=== PATIENT | female | born 1970 | race Caucasian/White ===

== ENCOUNTER → 2018-04-23 13:37 | Outpatient (CLI) | payer OTHER, SELFPAY ==
[2018-04-23 15:43] LABS: Appearance Urine UA CLOUDY; Bilirubin Urine UA NEGATIVE (NEGATIVE); Color Urine UA YELLOW; Glucose Urine UA NEGATIVE (Normal); Ketones Urine UA NEGATIVE (NEGATIVE); Leukocyte Esterase Urine UA NEGATIVE (NEGATIVE); Nitrite Urine UA Negative (Negative); Occult Blood Urine UA 3+ (Negative); Protein Urine UA NEGATIVE (Negative); Urobilinogen Urine UA 0.2 E.U./dL (0.2); pH Urine UA 7.5 (4.5-8.0)
[2018-04-23 16:24] LABS: Amorphous Sediment Urine 3+; Bacteria Urine Few (2-10); Culture Indicated Urine Cult Not Indicated; Mucus Urine 2+ (Negative); RBC Urine 10-30/HPF (0-5/HPF); Squamous Epithelial Cell Urine 0-1 /HPF; WBC Urine 0-1/HPF (0-5/HPF)
== END ==
PROVIDERS: Family Provider Physician Assistant; PCP Physician Assistant; Visit Provider Physician Assistant
DX: M54.5 Low back pain (principal); R31.9 Hematuria, unspecified
CPT/HCPCS: 81001

== ENCOUNTER → 2018-04-23 13:51 | Outpatient (CLI) | payer OTHER, SELFPAY ==
--- NOTE | 2018-04-23 13:55 | DI.RAD.S_ITS ---
PROCEDURE: XR HIP W PEL IF DONE RT 2V INDICATIONS: Recent tooth abcess w/subsequent Right hip pain TECHNIQUE: AP pelvis with AP and lateral view(s) of the right hip(s). COMPARISON: None. FINDINGS: Bones: No fractures or dislocations. Pelvic ring appears intact. No suspicious bony lesions. There is mild, symmetrical narrowing of the hip joint spaces and early subcortical cystic changes in the right acetabulum. Soft tissues: The visualized bowel gas pattern is normal. No suspicious soft tissue calcifications. IMPRESSION: No fracture deformity. No evidence of infectious process. Mild arthritis of the hips. Dictated by: Yefri Brush M.D. on 04/23/2018 at 15:08 Approved by: Yefri Brush M.D. on 04/23/2018 at 15:11
--- NOTE | 2018-04-23 13:55 | DI.RAD.S_ITS ---
PROCEDURE: XR ABDOMEN MIN 2V INDICATIONS: Recent tooth abcess w/subsequent Right hip pain TECHNIQUE: 2 views of the abdomen were acquired. COMPARISON: None. FINDINGS: Surgical changes and devices: None. Bowel: No pneumoperitoneum. The bowel gas pattern shows considerable fecal loading through the colon, possible constipation Soft tissues: No masses; visualized solid organ contours appear normal in size. No suspicious abdominal calcifications. Bones: No suspicious bony abnormalities. Mild lumbar levoconvex curvature. IMPRESSION: Possible constipation Dictated by: Yefri Brush M.D. on 04/23/2018 at 15:11 Approved by: Yefri Brush M.D. on 04/23/2018 at 15:12
[2018-04-23 14:31] LABS: Add Manual Diff / Slide Review NO; Basophils Percent Auto 0.7 % (0-2); Eosinophils Percent Auto 2.8 % (2-4); Hematocrit 38.9 % (36-46); Hemoglobin 13.2 g/dL (12.0-16.0); Lymphocytes Percent Auto 23.5 % (25-40); Mean Corpuscular HGB Conc 33.9 % (30-36); Mean Corpuscular Volume 91.4 fL (80-100); Monocytes Percent Auto 9.7 % (3-14); Neutrophils Absolute Auto 3400 /uL (3000-5900); Neutrophils Percent Auto 63.3 % (50-75); Platelet Count 180 X10^3/uL (150-400); Red Blood Cell Count 4.25 X10^6/uL (4.0-5.2); Red Cell Distribution Width 12.4 % (11.6-14.8); White Blood Cell Count 5.4 X10^3/uL (4.5-11.0)
[2018-04-23 15:19] LABS: Alanine Aminotransferase 38 IU/L (9-52); Albumin 4.1 g/dL (3.5-5.0); Albumin Globulin Ratio 1.6 (1.0-2.8); Alkaline Phosphatase 69 U/L (38-126); Aspartate Aminotransferase 33 IU/L (14-36); Bilirubin Total 0.6 mg/dL (0.2-1.3); Blood Urea Nitrogen 21 mg/dL (7-17); Calcium 9.3 mg/dL (8.4-10.2); Carbon Dioxide 29 mmol/L (22-32); Chloride 104 mmol/L (98-107); Estimated Glomerular Filt Rate > 60.0 mL/min (>60); Globulin 2.5 g/dL (1.7-4.1); Glucose 86 mg/dL (70-100); HEMOLYSIS < 15 (0-50); Iron 91 ug/dL (37-170); Potassium 3.6 mmol/L (3.4-5.1); Sodium 141 mmol/L (137-145); Total Protein 6.6 g/dL (6.3-8.2)
[2018-04-23 15:30] LABS: Percent Iron Saturation 27 % (15-50); Total Iron Binding Capacity 334 ug/dL (265-497); Transferrin 262 mg/dL (206-381)
[2018-04-23 15:36] LABS: Free T4, Direct Thyroxine 1.24 ng/dL (0.78-2.19)
[2018-04-23 15:50] LABS: Thyroid Stimulating Hormone 3.14 uIU/mL (0.47-4.68)
[2018-04-23 16:08] LABS: Vitamin B12 > 1000 pg/mL (239-931)
[2018-04-23 17:37] LABS: Vitamin D 25 Hydroxy (D3) 82.9 ng/mL (30.0-100.0)
== END ==
PROVIDERS: PCP Physician Assistant; Visit Provider Physician Assistant
DX: R31.9 Hematuria, unspecified (principal); M54.5 Low back pain; R06.00 Dyspnea, unspecified; R53.83 Other fatigue; Z82.62 Family history of osteoporosis; K04.7 Periapical abscess without sinus; M25.551 Pain in right hip; R06.09 Other forms of dyspnea
CPT/HCPCS: 36415; 73502; 74019; 80053; 82306; 82607; 82728; 83540; 83550; 84439; 84443; 85025

== ENCOUNTER → 2018-05-21 10:13 | Outpatient (CLI) | payer OTHER, SELFPAY ==
--- NOTE | 2018-05-21 10:15 | DI.US.S_ITS ---
PROCEDURE: US ABDOMEN COMPLETE INDICATIONS: RIGHT FLANK PAIN; HEMATURIA TECHNIQUE: Real-time scanning was performed of the abdominal and retroperitoneal organs, with image documentation. COMPARISON: None. FINDINGS: Liver: Liver is normal in size and homogeneous in echotexture. Gallbladder: Gallbladder is clear with normal wall thickness. Biliary ducts: Intrahepatic bile ducts are non-dilated. Extrahepatic bile duct caliber measures 3.2 mm. Normal is 6-7 mm or less in diameter, or 10 mm or less post-cholecystectomy. Pancreas: Visualized portions of the pancreas are sonographically normal. Spleen: Spleen is normal in size and homogeneous in echotexture. Kidneys: Kidneys are normal in size and echotexture. Right kidney measures 11.6 cm long; left kidney measures 11.6 cm long. No hydronephrosis or nephrolithiasis. No solid masses. Aorta: Visualized aorta is normal in caliber at less than 3 cm. Iliacs: Proximal common iliac arteries are normal in caliber at less than 2.5 cm. IVC: Intrahepatic inferior vena cava is patent. Miscellaneous: No free abdominal fluid. IMPRESSION: Normal abdomen ultrasound. Source of right flank pain not seen. If clinically indicated, suggest CT KUB. Dictated by: Yefri Brush M.D. on 05/21/2018 at 11:24 Approved by: Yefri Brush M.D. on 05/21/2018 at 11:30
--- NOTE | 2018-05-21 10:15 | DI.US.S_ITS ---
PROCEDURE: US PELVIC COMPLETE INDICATIONS: HEMATURIA; LOW BACK PAIN TECHNIQUE: Real-time scanning was performed of the pelvic organs, with image documentation. Additional endovaginal scanning was necessary due to incomplete visualization of the adnexal and endometrial structures by transabdominal scanning. COMPARISON: [facility], , PELVIC COMPLETE, 02/02/2009, 13:17. FINDINGS: Transabdominal scanning: Limited scanning through the kidneys shows no hydronephrosis. No pathologic free abdominal or pelvic fluid. Appendix is not visualized. Endovaginal scanning: Uterus: Uterus is normal in size at 3.2 x 3.4 x 5.9 cm. The endometrium measures 4.9 mm in combined thickness. Ovaries: Right ovary is nonvisualized. Left ovary measures 8 x 10 x 26 mm. No evidence of ovarian mass. Small follicular cysts. IMPRESSION: 1. Normal-appearing uterus and left ovary. 2. Right ovary is nonvisualized. No adnexal abnormality or source of right flank pain seen. Dictated by: Yefri Brush M.D. on 05/21/2018 at 11:33 Approved by: Yefri Brush M.D. on 05/21/2018 at 11:36
== END ==
PROVIDERS: Family Provider Physician Assistant; PCP Physician Assistant; Visit Provider Physician Assistant
DX: M54.5 Low back pain (principal); R31.9 Hematuria, unspecified; N91.2 Amenorrhea, unspecified; R10.2 Pelvic and perineal pain; N83.01 Follicular cyst of right ovary; R10.9 Unspecified abdominal pain
CPT/HCPCS: 76700; 76830; 76856

== ENCOUNTER → 2018-07-27 11:20 | Outpatient (CLI) | payer OTHER, SELFPAY ==
--- NOTE | 2018-07-27 | DI.CT.S_ITS ---
PROCEDURE: CT ABDOMEN PELVIS WO/W CON INDICATIONS: FAMILY HISTORY OF KIDNEY STONES TECHNIQUE: Optional 5 mm thick noncontrast images acquired from the diaphragm to the symphysis pubis. After the administration of intravenous contrast, 5 mm thick images acquired from the diaphragm to the symphysis pubis after a 10-minute delay. 2 mm thick coronal and sagittal reformats were then performed of the kidneys and ureters. For radiation dose reduction, the following was used: automated exposure control, adjustment of mA and/or kV according to patient size. COMPARISON: [facility], US, US PELVIC COMPLETE, 05/21/2018, 10:50. [facility], US, US ABDOMEN COMPLETE, 05/21/2018, 10:29. [facility], CR, XR ABDOMEN MIN 2V, 04/23/2018, 13:44. FINDINGS: Image quality: Excellent. Lung bases: Lung bases are clear. Heart size is normal. Urinary system: Both kidneys are normal in size, without hydronephrosis bilaterally or left-sided nephrolithiasis on pre-contrast images. There is a 2 x 2 0.5 mm calculus that appears nonobstructive within the lower third collecting system of the right kidney. No perinephric fat stranding. There is normal bilateral renal enhancement. Renal calyces appear normal in morphology when filled with contrast. Opacified portions of both ureters demonstrate normal caliber. Bladder wall thickness is normal. No calcified bladder stones. Other solid organs: Liver is normal in size and enhancement. Gallbladder appears normal. Biliary system is non dilated. Pancreas enhances normally. Spleen is normal in size and enhancement. No adrenal nodules. Peritoneum and bowel: Bowel loops demonstrate normal wall thickness and caliber. No free fluid or air. Nodes and vessels: No retroperitoneal or mesenteric adenopathy by size criteria. Aorta and inferior vena cava are normal in size. Abdominal wall: No ventral hernias. Pelvis: No pathologic free pelvic fluid. No inguinal hernias or adenopathy. Bones: No suspicious bony lesions. No vertebral body compression fractures. IMPRESSION: Nonobstructive tube 0.0 x 2.5 mm calculus is noted within the lower third collecting system of the right kidney. This represents the only identified source of right-sided flank pain. Dictated by: Tereso Ryan M.D. on 07/27/2018 at 13:28 Approved by: Tereso Ryan M.D. on 07/27/2018 at 13:52
== END ==
PROVIDERS: Family Provider Physician Assistant; PCP Physician Assistant; Visit Provider Urology
DX: N20.0 Calculus of kidney (principal); R10.9 Unspecified abdominal pain; Z84.1 Family history of disorders of kidney and ureter
CPT/HCPCS: 74178; Q9967

== ENCOUNTER 2019-08-20 13:55 | Emergency (ER) | payer OTHER, SELFPAY ==
[2019-08-20 14:13] VITALS: BP 148/83; PULSE 73; RESP 16; TEMP 36.7; O2SAT 98; BMI 18.6
--- NOTE | 2019-08-20 14:22 | DI.US.S_ITS ---
PROCEDURE: US PERIPH VENOUS LOW EXTREM RT INDICATIONS: CALF PAIN, POST FLIGHT TECHNIQUE: Real-time imaging, as well as color and pulse Doppler interrogation, were performed of the lower extremity deep veins from the inguinal ligament to the popliteal fossa. COMPARISON: None. FINDINGS: The common femoral, femoral and popliteal veins are normally compressible, and free of intraluminal thrombus. Color and pulse Doppler demonstrate normal phasic intraluminal flow. There is normal augmentation response to distal compression maneuver. IMPRESSION: No evidence of deep vein thrombosis of the right lower extremity. Dictated by: Massimo Dial M.D. on 08/20/2019 at 13:58 Approved by: Massimo Dial M.D. on 08/20/2019 at 13:58
--- NOTE | 2019-08-20 14:25 | ED_ITS ---
HPI - Extremity Problem <TALIA Marie - Last Filed: 08/20/19 15:27> General Chief complaint: Extremity Problem,Nontraumatic Stated complaint: right lower leg/? blood clot x1day Time Seen by Provider: 08/20/19 14:15 Source: patient Mode of arrival: Ambulatory Limitations: no limitations History of Present Illness HPI Narrative: The patient is a 48-year-old female nonsmoker with history of migraine who presents with a chief complaint of right lower leg pain. She states that she recently traveled to [place] including flights, and this morning she started having pain in her right lower leg. She has not taken anything for it. She is concerned about blood clot given her recent travel. She states she flew 1st class and try to move around a lot, but she is still concerned. Denies any chest pain shortness of breath or personal history of blood clots. However she states that she does have a family history of blood clots. Related Data Home Medications Medication Instructions Recorded Confirmed levothyroxine [Synthroid] 50 mcg PO DAILY 08/20/19 08/20/19 progesterone micronized 100 mg PO QAM 08/20/19 08/20/19 Previous Rx's Medication Instructions Recorded Adacel(Tdap Adolesn/Adult)(PF) 0.5 ml IM X1 #1 dose 04/10/17 albuterol sulfate 90 mcg/actuation 2 puff INHALATION Q4HP PRN #1 each 04/24/18 aerosol inhaler estradiol 0.05 mg/24 hr semiweekly 1 patch TRANSDERMAL 2XW #8 each 11/23/18 transdermal patch alprazolam 0.25 mg tablet 0.25 mg PO BID #20 tab 08/10/19 Allergies Allergy/AdvReac Type Severity Reaction Status Date / Time corn [CORN] Allergy Severe ANAPHYLAXIS Verified 08/20/19 14:17 BEE VENOM (YELLOW JACKET) Allergy Intermediate SWELLING Uncoded 08/20/19 14:17 Review of Systems <TALIA Marie - Last Filed: 08/20/19 15:27> Review of Systems Narrative: GENERAL: Denies chills, fatigue, malaise, fever, sweats. HEENT: Denies sinus pain, ear pain, sore throat, difficulty swallowing, dizziness. RESPIRATORY: Denies dyspnea, cough, wheezing, hemoptysis, sputum. CARDIOVASCULAR: Denies chest pain, palpitations, orthopnea, edema, GASTROINTESTINAL: Denies nausea, vomiting, abdominal pain, diarrhea, constipation, melena. : Denies dysuria, frequency, incontinence, hematuria, urinary retention. MUSCULOSKELETAL: See HPI SKIN: Denies rash, skin lesions, or other NEUROLOGIC: Denies weakness, headache, numbness, change in speech, confusion, seizures, incoordination. PSYCHIATRIC: No concerning psychosocial issues. 12 point review of systems is negative except for those stated above Patient History <TALIA Marie - Last Filed: 08/20/19 15:27> Surgical History Status post laparoscopy Family History Brother Age: 52 Hypertension High cholesterol Sleep apnea Father Age: 77 Heart disease Hypertension Aortic aneurysm High cholesterol Sleep apnea Mother Age: 74 Hypertension Detached retina High cholesterol Sleep apnea Sister Age: 46 Lupus Breast cancer Brain aneurysm Social History Smoking Status: Never smoker second hand exposure: No alcohol intake: current (On occasion) substance use type: does not use alcohol intake frequency: holidays/special occasions only Substance Use Type: does not use Exam <TALIA Marie - Last Filed: 08/20/19 15:27> Narrative Exam Narrative: GENERAL: This is a well-nourished, well-developed patient, in no acute distress HEAD: Atraumatic. Normocephalic. No temporal or scalp tenderness. EYES: Pupils equal round and reactive. Extraocular motions intact. No scleral icterus. No injection or drainage. ENT: Nose without bleeding, purulent drainage or septal hematoma. Throat without erythema, tonsillar hypertrophy or exudate. Uvula midline. Airway patent. NECK: Trachea midline. No JVD or lymphadenopathy. Supple, nontender, no meningeal signs. CARDIOVASCULAR: Regular rate and rhythm without murmurs, gallops, or rubs. RESPIRATORY: Clear to auscultation. Breath sounds equal bilaterally. No wheezes, rales, or rhonchi. No cough. No increased respiratory effort. No accessory muscle use. GASTROINTESTINAL: Abdomen soft, non-tender, nondistended. No hepato- splenomegaly, or palpable masses. No guarding. EXTREMITIES: Diffuse tenderness to palpation right lower leg. Positive pedal pulses. BACK: Nontender without deformity or crepitance. No flank tenderness. NEURO: AOx3. SKIN: No rash or erythema or ecchymosis on visible skin. Initial Vital Signs Initial Vital Signs: Vital Signs Temperature 98.0 F 08/20/19 14:13 Pulse Rate 73 08/20/19 14:13 Respiratory Rate 16 08/20/19 14:13 Blood Pressure 148/83 H 08/20/19 14:13 Pulse Oximetry 98 08/20/19 14:13 <Aminta Lyon DO - Last Filed: 08/21/19 07:31> Initial Vital Signs Initial Vital Signs: Vital Signs Temperature 98.0 F 08/20/19 14:13 Pulse Rate 73 08/20/19 14:13 Respiratory Rate 16 08/20/19 14:13 Blood Pressure 148/83 H 08/20/19 14:13 Pulse Oximetry 98 08/20/19 14:13 Course <TALIA Marie - Last Filed: 08/20/19 15:27> Orders Ordered: ED Orders 08/20/19 14:22 US periph venous low extrem rt Stat Vital Signs Vital signs: Vital Signs - 8 hr 08/20/19 14:13 Temperature 98.0 F Pulse Rate 73 Respiratory Rate 16 Blood Pressure 148/83 H Pulse Oximetry 98 <Aminta Lyon DO - Last Filed: 08/21/19 07:31> Orders Ordered: ED Orders 08/20/19 14:22 US periph venous low extrem rt Stat Vital Signs Vital signs: Vital Signs - 8 hr 08/20/19 14:13 Temperature 98.0 F Pulse Rate 73 Respiratory Rate 16 Blood Pressure 148/83 H Pulse Oximetry 98 MDM - Extremity (Nontraumatic) <TALIA Marie - Last Filed: 08/20/19 15:27> Imaging Data Venous US: Radiologist's impression: [address] [address] Ultrasound Report Signed Patient: Kiera Bradley JMR#: [id number] : 1970Acct:[id number] Age/Sex: 48 / FDate of Service: 08/20/19 Loc: ED Accession Number: [id number] Procedure: periph venous low extrem rt Ordering Provider: Shivani Beasley PROCEDURE: US PERIPH VENOUS LOW EXTREM RT INDICATIONS: CALF PAIN, POST FLIGHT TECHNIQUE: Real-time imaging, as well as color and pulse Doppler interrogation, were performed of the lower extremity deep veins from the inguinal ligament to the popliteal fossa. COMPARISON: None. FINDINGS: The common femoral, femoral and popliteal veins are normally compressible, and free of intraluminal thrombus. Color and pulse Doppler demonstrate normal phasic intraluminal flow. There is normal augmentation response to distal compression maneuver. IMPRESSION: No evidence of deep vein thrombosis of the right lower extremity. Dictated by: Massimo Dial M.D. on 08/20/2019 at 13:58 Approved by: Massimo Dial M.D. on 08/20/2019 at 13:58 [facility] Narrative Medical decision making narrative: The patient is a 48-year-old female who presents with a chief complaint of acute right lower leg pain. She has recently been flying to and from [place]. Thus given her risk factors, ultrasound was taken help rule out deep vein thrombosis, likely this came back negative for any acute findings. She is neurovascularly intact. She complains of no chest pain or shortness of breath. She is hemodynamically stable throughout her stay in the emergency department. I discussed conservative measures for her calf pain at this point time including [id number] medications, rest ice compression elevation. I encouraged follow-up with her PCP in the next few days. Discussed come back to emergency department for any acute concerns such as chest pain, shortness of breath, concern of blood clots. Patient has no questions or concerns upon discharge and states understanding of return precautions as well as follow-up care. Discharge Plan Departure Patient Disposition: Home Clinical Impression: Leg pain, right Discharge Date/Time: 08/20/19 15:13 Instructions: How To Perform RICE (Rest, Ice, Compress, Elevate), DI for Leg Pain Activity Restrictions/Additional Instructions: Your ultrasound came back negative for any blood clots today. Please come back to the emergency department for any acute concerns such as shortness of breath, concern of heart attack or stroke concern of another blood clot etc please Please follow up with primary care provider in a few days. Please to conservative measures such as rest ice compression elevation as well as [id number] pain medications as needed and able Prescriptions: No Action albuterol sulfate [Ventolin HFA] 90 mcg/actuation HFA aerosol inhaler 2 puff INHALATION Q4HP PRN (Reason: asthma) Qty: 1 RF: 4 Adacel(Tdap Adolesn/Adult)(PF) 0.5 ML suspension 0.5 ml IM X1 Qty: 1 RF: 0 alprazolam 0.25 mg tablet 0.25 mg PO BID Qty: 20 RF: 0 estradiol [Vivelle-Dot] 0.05 mg/24 hr patch semiweekly 1 patch Transdermal 2XW Qty: 8 RF: 12 levothyroxine [Synthroid] 50 mcg Tablet 50 mcg PO DAILY RF: 0 progesterone micronized 100 mg Capsule 100 mg PO QAM RF: 0 Referrals: Darcy Robb PA-C [Primary Care Provider] -
== END 2019-08-20 15:13 | disposition home or self-care (01) ==
PROVIDERS: Emergency Provider Nurse Practitioner Family; Family Provider Physician Assistant; PCP Physician Assistant
DX: M79.661 Pain in right lower leg (principal)
CPT/HCPCS: 93971; 99282; 99283

== ENCOUNTER → 2019-08-30 12:04 | Outpatient (CLI) | payer OTHER, SELFPAY ==
--- NOTE | 2019-08-30 12:07 | DI.RAD.S_ITS ---
PROCEDURE: XR LUMBAR SPINE MIN 4V INDICATIONS: Low back pain with possible sciatica on R TECHNIQUE: 4 views of the lumbar spine were acquired. COMPARISON: [facility], CT, CT ABDOMEN PELVIS WO/W CON, 07/27/2018, 11:30. FINDINGS: Bones: 5 nonrib-bearing vertebrae are present. There is normal bony alignment. No vertebral body compression fractures. No suspicious bony lesions. Soft tissues: Overlying bowel gas pattern is normal. No suspicious soft tissue calcifications. Oblique images: No pars defects. IMPRESSION: No source of low back pain and right-sided sciatica symptoms is found. Followup MR scanning may become necessary. Dictated by: Tereso Ryan M.D. on 08/30/2019 at 13:01 Approved by: Tereso Ryan M.D. on 08/30/2019 at 13:02
--- NOTE | 2019-08-30 12:07 | DI.RAD.S_ITS ---
PROCEDURE: XR SACROILIAC JOINT MIN 3V INDICATIONS: Low back pain with possible sciatica on R TECHNIQUE: 3 views of the sacroiliac joints were acquired. COMPARISON: None. FINDINGS: Bones: No bony erosions or ankylosis. No suspicious bony lesions. No fractures. Soft tissues: Overlying bowel gas pattern is normal. No suspicious soft tissue densities. IMPRESSION: Normal evaluation for age, source of asymmetric right-sided sciatica is not found. Dictated by: Tereso Ryan M.D. on 08/30/2019 at 13:00 Approved by: Tereso Ryan M.D. on 08/30/2019 at 13:00
== END ==
PROVIDERS: PCP Physician Assistant; Visit Provider Physician Assistant
DX: M54.5 Low back pain (principal); M79.604 Pain in right leg; Z87.828 Personal history of other (healed) physical injury and trauma
CPT/HCPCS: 72110; 72202

== ENCOUNTER → 2020-02-24 12:32 | Outpatient (CLI) | payer OTHER, SELFPAY | PROVIDERS: PCP Physician Assistant; Visit Provider Family Medicine | DX: R30.0 Dysuria (principal) | CPT/HCPCS: 87086 ==

== ENCOUNTER → 2020-06-28 13:29 | Outpatient (CLI) | payer OTHER, SELFPAY | PROVIDERS: PCP Physician Assistant; Visit Provider Physician Assistant | DX: N30.01 Acute cystitis with hematuria (principal) | CPT/HCPCS: 87086 ==

== ENCOUNTER → 2020-07-18 20:13 | Outpatient (ROUT) | payer OTHER, SELFPAY ==
[2020-07-18 20:18] LABS: Bacteria Urine None Seen
[2020-07-18 20:31] LABS: Appearance Urine UA CLEAR; Bilirubin Urine UA NEGATIVE (NEGATIVE); Color Urine UA YELLOW; Glucose Urine UA NEGATIVE (Negative); Ketones Urine UA 1+ (NEGATIVE); Leukocyte Esterase Urine UA NEGATIVE (NEGATIVE); Nitrite Urine UA NEGATIVE (Negative); Occult Blood Urine UA 1+ (Negative); Protein Urine UA NEGATIVE (Negative); Specific Gravity Urine UA >=1.030 (1.000-1.035); Urobilinogen Urine UA 0.2 E.U./dL (0.2)
[2020-07-18 20:54] LABS: Add Manual Diff / Slide Review NO; Basophils Absolute Auto 0 /uL (0-100); Basophils Percent Auto 0.6 % (0-2); Eosinophils Absolute Auto 100 /uL (0-450); Eosinophils Percent Auto 2.2 % (2-4); Hematocrit 41.4 % (36-46); Hemoglobin 13.9 g/dL (12.0-16.0); Lymphocytes Absolute Auto 1200 /uL (1100-4500); Lymphocytes Percent Auto 25.7 % (25-40); Mean Corpuscular HGB Conc 33.7 % (30-36); Mean Corpuscular Hemoglobin 30.8 PG (26-34); Mean Corpuscular Volume 91.5 fL (80-100); Monocytes Absolute Auto 500 /uL (0-900); Monocytes Percent Auto 10.5 % (3-14); Neutrophils Absolute Auto 2800 /uL (1500-7000); Platelet Count 133 X10^3/uL (150-400); Red Blood Cell Count 4.52 X10^6/uL (4.0-5.2); Red Cell Distribution Width 12.5 % (11.6-14.8); White Blood Cell Count 4.5 X10^3/uL (4.5-11.0)
[2020-07-18 20:55] LABS: Calcium Oxalate Crystals Urine Few; Culture Indicated Urine Cult Not Indicated; RBC Urine 0-1/HPF (0-5/HPF); Squamous Epithelial Cell Urine 1-5 /HPF (0-5/HPF); Transitional Epi Cells Urine 0-1/HPF (0-5/HPF); WBC Urine 0-1/HPF (0-5/HPF)
[2020-07-18 21:06] LABS: Vitamin D 25 Hydroxy (D3) 86.6 ng/mL (30.0-100.0)
[2020-07-18 21:23] LABS: Estradiol, Total 47.3 pg/mL
[2020-07-18 21:25] LABS: C-Reactive Protein Quant < 0.5 mg/dL (<1.0)
[2020-07-18 21:32] LABS: Free T3, Triiodothyronine Free 2.68 pg/mL (2.77-5.27); Free T4, Direct Thyroxine 1.11 ng/dL (0.78-2.19)
[2020-07-18 21:46] LABS: Thyroid Stimulating Hormone 1.17 uIU/mL (0.47-4.68)
== END ==
PROVIDERS: PCP Physician Assistant; Visit Provider Physician Assistant
DX: E03.9 Hypothyroidism, unspecified (principal); E78.00 Pure hypercholesterolemia, unspecified; N95.1 Menopausal and female climacteric states; N39.0 Urinary tract infection, site not specified; E55.9 Vitamin D deficiency, unspecified; R53.83 Other fatigue
CPT/HCPCS: 81001; 82306; 82670; 83001; 83002; 84439; 84443; 84481; 85025; 86140

== ENCOUNTER → 2020-08-10 14:12 | Outpatient (CLI) | payer OTHER, SELFPAY ==
[2020-08-10 15:36] LABS: HEMOLYSIS < 15 (0-50); Iron 62 ug/dL (37-170)
[2020-08-10 15:48] LABS: Percent Iron Saturation 22 % (15-50); Total Iron Binding Capacity 279 ug/dL (265-497); Transferrin 199 mg/dL (206-381)
[2020-08-10 15:55] LABS: Prolactin 18.5 ng/mL (3.0-18.6)
[2020-08-10 16:13] LABS: Ferritin 41 ng/mL (11-264)
[2020-08-10 16:27] LABS: Vitamin B12 919 pg/mL (239-931)
[2020-08-12 04:06] LABS: Vitamin B6 56.6 ug/L (2.0-32.8)
== END ==
PROVIDERS: PCP Physician Assistant; Referring Provider Physician Assistant; Visit Provider Physician Assistant
DX: E61.1 Iron deficiency (principal); N39.0 Urinary tract infection, site not specified; E03.9 Hypothyroidism, unspecified; N95.1 Menopausal and female climacteric states; R53.83 Other fatigue; E63.9 Nutritional deficiency, unspecified
CPT/HCPCS: 36415; 82607; 82728; 83540; 83550; 84146; 84207; 84425

== ENCOUNTER → 2020-09-16 08:32 | Outpatient (CLI) | payer OTHER, SELFPAY ==
--- NOTE | 2020-09-16 | DI.MG.S_ITS ---
BILATERAL DIGITAL SCREENING MAMMOGRAM 3D/2D WITH CAD: 09/16/2020 CLINICAL: Routine screening. Baseline exam. Family history of breast cancer. No prior exams were available for comparison. The tissue of both breasts is heterogeneously dense. This may lower the sensitivity of mammography. Current study was also evaluated with a Computer Aided Detection (CAD) system. There are grouped punctate calcifications in the right breast at 3 o'clock middle depth. No other significant masses, calcifications, or other findings are seen in either breast. IMPRESSION: INCOMPLETE: NEEDS ADDITIONAL IMAGING EVALUATION The grouped punctate calcifications in the right breast are indeterminate. Mediolateral, spot magnification, and additional views are recommended. This exam was interpreted at Station ID: [id number]. NOTE: For mammograms, a report in lay terms will be sent to the patient. Approximately 15% of breast malignancies will not be visualized mammographically. In the management of a palpable breast mass, a negative mammogram must not discourage biopsy of a clinically suspicious lesion. Electronically Signed By: Porter Robles M.D. at/:09/18/2020 07:17:44 letter sent: Additional Imaging Needed ACR BI-RADS Category 0: Incomplete [id number]
== END ==
PROVIDERS: PCP Physician Assistant; Referring Provider Physician Assistant; Visit Provider Physician Assistant
DX: Z12.31 Encounter for screening mammogram for malignant neoplasm of breast (principal); Z80.3 Family history of malignant neoplasm of breast
CPT/HCPCS: 77063; 77067

== ENCOUNTER → 2020-10-19 08:44 | Outpatient (CLI) | payer OTHER, SELFPAY ==
--- NOTE | 2020-10-19 | DI.MG.S_ITS ---
UNILATERAL RIGHT DIGITAL DIAGNOSTIC MAMMOGRAM 3D/2D WITH ADDITIONAL VIEWS: 10/19/2020 CLINICAL: Additional evaluation requested from prior study. Comparison is made to exam dated: 09/16/2020 [facility]. The tissue of right breast is heterogeneously dense. This may lower the sensitivity of mammography. There are grouped fine calcifications in the right breast at 3 o'clock middle depth. No other significant masses or calcifications are seen in the breast. IMPRESSION: PROBABLY BENIGN The grouped fine calcifications in the right breast resemble milk of calcium and are probably benign. A follow-up mammogram in 6 months is recommended. A follow-up mammogram in 6 months is recommended to demonstrate stability. This exam was interpreted at Station ID: [id number]. NOTE: For mammograms, a report in lay terms will be sent to the patient. Approximately 15% of breast malignancies will not be visualized mammographically. In the management of a palpable breast mass, a negative mammogram must not discourage biopsy of a clinically suspicious lesion. Electronically Signed By: Shawn serrato/benjamin:10/19/2020 09:19:34 letter sent: Followup Recommended ACR BI-RADS Category 3: Probably benign [id number]
== END ==
PROVIDERS: PCP Physician Assistant; Referring Provider Physician Assistant; Visit Provider Physician Assistant
DX: R92.8 Other abnormal and inconclusive findings on diagnostic imaging of breast (principal)
CPT/HCPCS: 77065; G0279

== ENCOUNTER → 2020-12-20 16:39 | Outpatient (CLI) | payer OTHER, SELFPAY ==
--- NOTE | 2020-12-20 16:40 | DI.MRI.S_ITS ---
PROCEDURE: MR ANKLE RT WO CON INDICATIONS: PAIN IN RIGHT ANKLE TECHNIQUE: Noncontrast sagittal T1 spin echo and T2 fast spin echo with fat saturation, axial proton density fast spin echo and T2 fast spin echo with fat saturation, coronal T1 spin echo and T2 fast spin echo with fat saturation through the ankle/hindfoot. COMPARISON: None. FINDINGS: Image quality: Excellent. Bones and joints: No bone marrow contusions or fractures. No hindfoot coalitions. No osteochondral injuries of the talar dome. No pathologic joint effusions. Medial structures: The posterior tibialis, flexor digitorum longus, and flexor hallucis longus tendons are intact. The posterior tibial neurovascular bundle appears normal within the tarsal tunnel, without extrinsic mass effect. There is edema within deep layer of deltoid ligament suggestive of ligament sprain/low-grade partial-thickness tear. The spring ligament components (superomedial calcaneonavicular, medioplantar oblique calcaneonavicular, and inferoplantar longitudinal ligaments) are intact. Lateral structures: The anterior talofibular, calcaneofibular, and posterior talofibular ligaments appear intact. More superiorly, there is thickening of anterior and posterior tibial fibular ligaments with intrasubstance T2 hyperintense signal particularly involving anterior talofibular ligament suggestive of ligament sprain/low to moderate grade intrasubstance partial-thickness tear. The tibiofibular syndesmosis is normal in width at 2 mm or less. The peroneus longus and brevis tendons demonstrate normal location and morphology. Adjacent bony peroneal tubercle and retrotrochlear prominence are normal in size. The sinus tarsi demonstrates normal fatty signal, without edema, fibrosis, or cyst formation. Visualized sinus tarsi components (cervical ligament, interosseous talocalcaneal ligament, roots of the inferior extensor retinaculum) appear normal. The calcaneonavicular and calcaneocuboid components of the bifurcate ligament appear intact. The dorsal calcaneocuboid ligament appears intact. Anterior structures: The tibialis anterior, extensor hallucis longus, and extensor digitorum longus tendons appear intact. The dorsal talonavicular ligament appears intact. Posterior and plantar structures: Achilles tendon is intact. Medial and lateral bands of the plantar fascia are of normal thickness. No abductor digiti quinti muscle atrophy to suggest Hall neuropathy. IMPRESSION: 1. No marrow edema. No fracture or dislocation. No evidence of osteochondral lesion of talar dome. 2. Suggestion of sprain/low-grade partial-thickness tear involving deep fibers of deltoid ligament. 3. Suggestion of sprain/low to moderate grade partial-thickness tear involving anterior tibial fibular ligament and posterior tibial fibular ligament. No significant widening of distal tibial fibular syndesmosis. Anterior and posterior talofibular ligaments are intact. 4. Ankle tendons are intact. Dictated by: Estrada Ward M.D. on 12/21/2020 at 10:10 Approved by: Estrada Ward M.D. on 12/21/2020 at 10:14
== END ==
PROVIDERS: PCP Physician Assistant; Referring Provider Physician Assistant; Visit Provider Physician Assistant
DX: M25.571 Pain in right ankle and joints of right foot (principal)
CPT/HCPCS: 73721

== ENCOUNTER → 2021-02-23 17:48 | Outpatient (CLI) | payer OTHER, SELFPAY ==
[2021-02-24 12:42] LABS: SARS CoV19 IgG Negative (Negative)
== END ==
PROVIDERS: PCP Physician Assistant; Referring Provider Naturopath; Visit Provider Naturopath
DX: A57 Chancroid (principal); Z91.012 Allergy to eggs; Z86.16 Personal history of COVID-19; Z20.822 Contact with and (suspected) exposure to COVID-19
CPT/HCPCS: 36415; 86769

== ENCOUNTER → 2021-02-27 16:39 | Outpatient (CLI) | payer OTHER, SELFPAY ==
[2021-03-02 14:36] LABS: HSV 2 IGG AB 1.02 index (0.00-0.90); HSV1IGG < 0.91 index (0.00-0.90)
[2021-05-10 09:56] LABS: Miscellaneous to LabCorp 54.4
== END ==
PROVIDERS: PCP Physician Assistant; Referring Provider Naturopath; Visit Provider Naturopath
DX: A57 Chancroid (principal); Z91.012 Allergy to eggs; Z86.16 Personal history of COVID-19
CPT/HCPCS: 86001; 86003; 86695; 86696

== ENCOUNTER → 2021-06-19 13:25 | Outpatient (CLI) | payer OTHER, SELFPAY ==
--- NOTE | 2021-06-19 | DI.MG.S_ITS ---
UNILATERAL RIGHT DIGITAL DIAGNOSTIC MAMMOGRAM 3D/2D SHORT-TERM FOLLOW-UP: 06/19/2021 CLINICAL: SHORT TERM FOLLOW UP. Comparison is made to exams dated: 10/19/2020 mammogram and 09/16/2020 mammogram - [facility]. The tissue of right breast is heterogeneously dense. This may lower the sensitivity of mammography. There are grouped fine calcifications in the right breast at 3 o'clock middle depth. These are not significantly changed. No other significant masses or calcifications are seen in the breast. IMPRESSION: PROBABLY BENIGN The grouped fine calcifications in the right breast resemble milk of calcium and are probably benign. A follow-up mammogram in 6 months is recommended to demonstrate stability. This exam was interpreted at Station ID: [id number]. NOTE: For mammograms, a report in lay terms will be sent to the patient. Approximately 15% of breast malignancies will not be visualized mammographically. In the management of a palpable breast mass, a negative mammogram must not discourage biopsy of a clinically suspicious lesion. Electronically Signed By: Ruslan carrasquillo/benjamin:06/19/2021 14:15:48 letter sent: Followup Recommended ACR BI-RADS Category 3: Probably benign 3343F
== END ==
PROVIDERS: PCP Physician Assistant; Referring Provider Physician Assistant; Visit Provider Physician Assistant
DX: R92.8 Other abnormal and inconclusive findings on diagnostic imaging of breast (principal); R92.1 Mammographic calcification found on diagnostic imaging of breast
CPT/HCPCS: 77065; G0279

== ENCOUNTER → 2021-07-24 17:44 | Outpatient (CLI) | payer OTHER, SELFPAY | PROVIDERS: PCP Physician Assistant; Referring Provider Nurse Practitioner Family; Visit Provider Nurse Practitioner Family | DX: N39.0 Urinary tract infection, site not specified (principal) | CPT/HCPCS: 87077; 87086; 87186 ==

== ENCOUNTER → 2021-09-13 11:17 | Outpatient (CLI) | payer OTHER, SELFPAY ==
--- NOTE | 2021-09-13 | DI.MRI.S_ITS ---
PROCEDURE: MR LUMBAR SPINE WO CON INDICATIONS: Spinal stenosis, lumbar region without neurogenic TECHNIQUE: Noncontrast sagittal T1 spin echo and T2 fast echo, sagittal STIR, axial T1 and T2 fast spin echo through the lumbar spine. In cases with scoliosis, additional coronal T2 fast spin echo may be performed. COMPARISON: None. FINDINGS: Image quality: Excellent. Alignment and Curvature: There is normal bony alignment. Bone Marrow: Marrow is of normal overall signal. No acute vertebral body compression fractures. Spinal Cord: Conus medullaris terminates at the L1 level. Visualized cord demonstrates normal signal and size. Paraspinous Soft Tissues: No paravertebral masses. T12-L1: No canal stenosis or foraminal stenosis. L1-L2: No canal stenosis or foraminal stenosis. L2-L3: No canal stenosis or foraminal stenosis. L3-L4: No canal stenosis or foraminal stenosis. Mild facet hypertrophy. L4-L5: Minimal disc bulge. Mild facet hypertrophy. Macro canal L5-S1: No canal stenosis or foraminal stenosis. IMPRESSION: 1. Negative for canal stenosis or foraminal stenosis. 2. Mild lower lumbar facet arthropathy. Dictated by: Armani Turcios M.D. on 09/13/2021 at 15:03 Approved by: Armani Turcios M.D. on 09/13/2021 at 15:06
== END ==
PROVIDERS: PCP Physician Assistant; Referring Provider Physician Assistant; Visit Provider Physician Assistant
DX: M48.061 Spinal stenosis, lumbar region without neurogenic claudication (principal); M47.816 Spondylosis without myelopathy or radiculopathy, lumbar region
CPT/HCPCS: 72148

== ENCOUNTER → 2022-01-04 12:52 | Outpatient (CLI) | payer OTHER, SELFPAY ==
--- NOTE | 2022-01-04 | DI.MG.S_ITS ---
BILATERAL DIGITAL DIAGNOSTIC MAMMOGRAM 3D/2D SHORT-TERM FOLLOW-UP: 01/04/2022 CLINICAL: Short term follow up of the right breast, due for bilateral imaging. Comparison is made to exams dated: 06/19/2021 mammogram, 10/19/2020 mammogram, and 09/16/2020 mammogram - [facility]. The tissue of both breasts is heterogeneously dense. This may lower the sensitivity of mammography. There are benign grouped fine calcifications in the right breast at 3 o'clock middle depth. These are not significantly changed and are stable since 09/16/20. No other significant masses, calcifications, or other findings are seen in either breast. IMPRESSION: BENIGN There is no mammographic evidence of malignancy. A 1 year screening mammogram is recommended. This exam was interpreted at Station ID: [id number]. NOTE: For mammograms, a report in lay terms will be sent to the patient. Approximately 15% of breast malignancies will not be visualized mammographically. In the management of a palpable breast mass, a negative mammogram must not discourage biopsy of a clinically suspicious lesion. Electronically Signed By: Tru Daniel acr/:01/04/2022 13:53:48 letter sent: Normal Exam ACR BI-RADS Category 2: Benign Finding(s) 3342F
== END ==
PROVIDERS: PCP Physician Assistant; Referring Provider Physician Assistant; Visit Provider Physician Assistant
DX: R92.8 Other abnormal and inconclusive findings on diagnostic imaging of breast (principal); R92.1 Mammographic calcification found on diagnostic imaging of breast
CPT/HCPCS: 77066; G0279

== ENCOUNTER → 2022-02-21 17:58 | Outpatient (CLI) | payer OTHER, SELFPAY ==
--- NOTE | 2022-02-21 18:02 | DI.RAD.S_ITS ---
PROCEDURE: XR CHEST 2V INDICATIONS: cough, h/o pneumonia TECHNIQUE: 2 views of the chest were acquired. COMPARISON: None. FINDINGS: Surgical changes and devices: None. Lungs and pleura: Lungs are hyperexpanded suggestive of COPD. There is blunting of the costophrenic angles bilaterally. Mediastinum: Mediastinal contours are normal. Heart size is normal. Bones and chest wall: No suspicious bony abnormalities. Soft tissues appear unremarkable. IMPRESSION: Hyperexpansion suggestive of COPD. Costophrenic angle blunting suggestive of scarring versus trace effusions. No consolidations. Dictated by: Ale Oro M.D. on 02/22/2022 at 15:10 Approved by: Ale Oro M.D. on 02/22/2022 at 15:10
== END ==
PROVIDERS: PCP Physician Assistant; Referring Provider Physician Assistant; Visit Provider Physician Assistant
DX: R05.9 Cough, unspecified (principal); J45.909 Unspecified asthma, uncomplicated
CPT/HCPCS: 71046

== ENCOUNTER → 2022-08-30 14:59 | Outpatient (CLI) | payer OTHER, SELFPAY ==
--- NOTE | 2022-08-30 | DI.RAD.S_ITS ---
PROCEDURE: XR CHEST 2V INDICATIONS: COUGH TECHNIQUE: 2 views of the chest were acquired. COMPARISON: [facility], CR, XR CHEST 2V, 02/21/2022, 17:55. FINDINGS: Surgical changes and devices: None. Lungs and pleura: Lungs are clear. No pleural effusions or pneumothorax. Mediastinum: Mediastinal contours are normal. Heart size is normal. Bones and chest wall: No suspicious bony abnormalities. Soft tissues appear unremarkable. IMPRESSION: No acute cardiopulmonary pathology. Dictated by: Estrada Ward M.D. on 08/30/2022 at 15:49 Approved by: Estrada Ward M.D. on 08/30/2022 at 15:51
== END ==
PROVIDERS: PCP Physician Assistant; Referring Provider Physician Assistant; Visit Provider Physician Assistant
DX: R05.9 Cough, unspecified (principal)
CPT/HCPCS: 71046

== ENCOUNTER → 2023-01-29 15:33 | Outpatient (CLI) | payer OTHER, SELFPAY ==
--- NOTE | 2023-01-29 15:36 | DI.MG.S_ITS ---
BILATERAL DIGITAL SCREENING MAMMOGRAM 3D/2D WITH CAD: 01/29/2023 CLINICAL: Routine screening. Family history of breast cancer. Comparison is made to exams dated: 01/04/2022 mammogram and 09/16/2020 mammogram - [facility]. Both breasts are heterogeneously dense, which may obscure small masses (category c / 51-75% glandular tissue). Current study was also evaluated with a Computer Aided Detection (CAD) system. No significant masses, calcifications, or other findings are seen in either breast. There has been no significant interval change. IMPRESSION: NEGATIVE There is no mammographic evidence of malignancy. A 1 year screening mammogram is recommended. Based on the Tyrer Cuzick model (a risk assessment model) the patient's lifetime risk is 17.3% and her 10 year risk is 5.1%. According to the ACR, ACS, and NCCN guidelines, an annual breast MRI exam along with mammogram is recommended if the patient's lifetime risk is 20% or greater. This exam was interpreted at Station ID: [id number]. NOTE: For mammograms, a report in lay terms will be sent to the patient. Approximately 15% of breast malignancies will not be visualized mammographically. In the management of a palpable breast mass, a negative mammogram must not discourage biopsy of a clinically suspicious lesion. Electronically Signed By: Javier rodriguez/benjamin:01/30/2023 08:03:29 letter sent: Normal Exam ACR BI-RADS Category 1: Negative 3341F
== END ==
PROVIDERS: PCP Physician Assistant; Referring Provider Physician Assistant; Visit Provider Physician Assistant
DX: Z12.31 Encounter for screening mammogram for malignant neoplasm of breast (principal); Z80.3 Family history of malignant neoplasm of breast
CPT/HCPCS: 77063; 77067

== ENCOUNTER → 2023-09-25 12:32 | Outpatient (CLI) | payer OTHER, SELFPAY ==
[2023-10-07 06:09] LABS: Percent Free Testosterone 1.26 % (0.50-2.80); Testosterone Free 0.15 ng/dL (0.10-0.85); Testosterone Total 11.9 ng/dL (.)
== END ==
PROVIDERS: PCP Physician Assistant; Referring Provider Urology; Visit Provider Urology
DX: Z78.0 Asymptomatic menopausal state (principal)
CPT/HCPCS: 36415; 82670; 84402; 84403

== ENCOUNTER → 2024-09-09 08:55 | Outpatient (CLI) | payer OTHER, SELFPAY ==
--- NOTE | 2024-09-09 08:56 | DI.MG.S_ITS ---
BILATERAL DIGITAL DIAGNOSTIC MAMMOGRAM 3D/2D: 09/09/2024 CLINICAL: Mastodynia. Comparison is made to exams dated: 01/29/2023 mammogram, 01/04/2022 mammogram, and 09/16/2020 mammogram - . The breasts are heterogeneously dense, which may obscure small masses (category c / 51-75% glandular tissue). No significant masses, calcifications, or other findings are seen in either breast. IMPRESSION: INCOMPLETE: NEED ADDITIONAL IMAGING EVALUATION There is no mammographic abnormality seen in the right breast to correspond with the pain, however, targeted ultrasound of the right breast is recommended and will be performed immediately following this exam. Based on the Tyrer Cuzick model (a risk assessment model) the patient's lifetime risk is 17.1% and her 10 year risk is 5.4%. According to the ACR, ACS, and NCCN guidelines, an annual breast MRI exam along with mammogram is recommended if the patient's lifetime risk is 20% or greater. This exam was interpreted at Station ID: [id number]. NOTE: For mammograms, a report in lay terms will be sent to the patient. Approximately 15% of breast malignancies will not be visualized mammographically. In the management of a palpable breast mass, a negative mammogram must not discourage biopsy of a clinically suspicious lesion. Electronically Signed By: Daylin Mike M.D. lk/:09/09/2024 09:23:53 letter sent: Additional Imaging Needed ACR BI-RADS Category 0: Incomplete: Need Additional Imaging Evaluation
--- NOTE | 2024-09-09 08:57 | DI.US.S_ITS ---
LIMITED ULTRASOUND OF RIGHT BREAST: 09/09/2024 CLINICAL: Focal right breast pain. Comparison is made to exams dated: 09/09/2024 mammogram, 01/29/2023 mammogram, 01/04/2022 mammogram, 06/19/2021 mammogram, 10/19/2020 mammogram, and 09/16/2020 mammogram - [facility]. Color flow and real-time ultrasound of the right breast 8-9 o'clock region were performed on the areas of interest. Smith scale images of the real-time examination were reviewed. There is a normal appearing lymph node in the right breast at 9 o'clock middle depth. This correlates as an incidental finding. There also is a benign cluster of oval cysts in the right breast at 8 o'clock middle depth. This cluster of oval cysts is anechoic. This correlates as an incidental finding. IMPRESSION: BENIGN There is no sonographic evidence of malignancy. There is no mammographic or sonographic abnormality seen in the right breast to correspond with the pain, however, clinical followup is recommended. Return to annual mammogram screening schedule is recommended. This exam was interpreted at Station ID: [id number]. Electronically Signed By: Daylin luna/:09/09/2024 10:02:14 letter sent: Clinical Evaluation ACR BI-RADS Category 2: Benign
== END ==
PROVIDERS: PCP Physician Assistant; Referring Provider Physician Assistant; Visit Provider Physician Assistant
DX: N64.4 Mastodynia (principal); R92.333 Mammographic heterogeneous density, bilateral breasts; R92.2 Inconclusive mammogram
CPT/HCPCS: 76642; 77066; G0279

== ENCOUNTER → 2024-12-02 17:11 | Outpatient (CLI) | payer OTHER, SELFPAY | PROVIDERS: PCP Physician Assistant; Referring Provider Physician Assistant; Visit Provider Urology | DX: Z78.0 Asymptomatic menopausal state (principal) | CPT/HCPCS: 36415 ==

== ENCOUNTER → 2025-08-02 15:30 | Outpatient (CLI) | payer OTHER, SELFPAY ==
--- NOTE | 2025-08-02 15:31 | DI.US.S_ITS ---
PROCEDURE: US PELVIC COMPLETE INDICATIONS: ABNORMAL UTERINE AND VAGINAL BLEEDNING TECHNIQUE: Real-time scanning was performed of the pelvic organs, with image documentation. Additional endovaginal scanning was necessary due to incomplete visualization of the adnexal and endometrial structures by transabdominal scanning. COMPARISON: [facility], , US PELVIC COMPLETE, 05/21/2018, 10:50. FINDINGS: Uterus: 7.7 x 3.6 x 5.3 cm. The endometrium measures 12 mm. Ovaries: Not seen Other: Cervical nabothian cysts are seen, largest measuring 9 mm, with complex contents IMPRESSION: Thickened endometrium at 12 mm, consider sampling and correlation with any postmenopausal bleeding symptoms. Dictated by: Javier Blackmon M.D. on 08/02/2025 at 22:13 Approved by: Javier Blackmon M.D. on 08/02/2025 at 22:15
== END ==
LOC: US 15:30
PROVIDERS: PCP Physician Assistant; Referring Provider Physician Assistant; Visit Provider Physician Assistant
DX: N93.9 Abnormal uterine and vaginal bleeding, unspecified (principal); R93.89 Abnormal findings on diagnostic imaging of other specified body structures; N88.8 Other specified noninflammatory disorders of cervix uteri
CPT/HCPCS: 76830; 76856